=== PATIENT | female | born 1975 | race Caucasian/White ===

== ENCOUNTER 2021-04-10 18:16 | Emergency (ER) | payer MEDICAID, SELFPAY ==
[2021-04-10 18:36] VITALS: BP 129/74; PULSE 76; RESP 17; TEMP 36.1; O2SAT 99; BMI 23.9
[2021-04-10 18:45] VITALS: BP 129/74; PULSE 76; RESP 17; O2SAT 99
--- NOTE | 2021-04-10 18:47 | ED_ITS ---
HPI - Extremity Problem General: Chief complaint: Extremity Injury, Upper Stated complaint: rt fingers are numb Time Seen by Provider: 04/10/21 18:47 History of Present Illness: HPI Narrative: 45-year-old female comes in today with complaints of numbness in the fingers of the right hand. Patient reports that sometimes the numbness causes some discomfort that radiates to her right inner elbow. Patient has normal range of motion. Patient denies any injury. Patient is a smoker. Patient denies any chronic medical problems or routine medications. Review of Systems General: Reports: 10 or more systems reviewed and unremarkable except in HPI and below Musc: Reports: other (Upper extremity pain and numbness) Physical Exam Const: COMMON NORMALS: no acute distress and patient oriented x3 GENERAL APPEARANCE: cooperative HENMT: COMMON NORMALS: normocephalic HEAD & SCALP: normal to inspection and normocephalic MOUTH: Normal oral and palatal mucosa present Eye: GENERAL EYE: appearance normal, both eyes and all related structures Neck/C-Spine: COMMON NORMALS: full ROM OTHER: Right trapezius muscle tension and tenderness Lymph: LYMPHATIC: no lymphadenopathy noted Chest: COMMONS NORMALS: normal inspection of the chest Resp: COMMON NORMALS: normal respiratory effort EFFORT & INSPECTION: Yes able to speak in complete sentences Cardio: COMMON NORMALS: regular rate and regular rhythm RATE: regular rate RHYTHM: regular rhythm GI: COMMON NORMALS: non-tender Back/Pelvis: COMMON NORMALS: thoracic and lumbar spine normal to inspection Extremity: COMMON NORMALS: normal to inspection NARRATIVE EXTREMITY EXAM: Tenderness of the medial epicondyle, equal bilateral strength, normal range of motion, no significant abnormality between extremities. Pulses are intact. Neuro: COMMON NORMALS: patient oriented x3 and moves all extremities Psych: COMMON NORMALS: mental status grossly normal and cooperative Skin: COMMON NORMALS: no rashes or lesions noted GENERAL SKIN EXAM: no rashes or lesions noted Course Vital Signs: Vital signs: Vital Signs Temperature 97 F L 04/10/21 18:36 Pulse Rate 76 04/10/21 18:45 Respiratory Rate 17 04/10/21 18:45 Blood Pressure 129/74 04/10/21 18:45 Pulse Oximetry 99 04/10/21 18:45 MDM - Extremity (Nontraumatic) MDM Narrative: Medical decision making narrative: 45-year-old female comes in today for concerns of numbness and pain to the right hand. Patient does report that she has had difficulties for a while but had to call out of work today due to the extreme discomfort. On exam patient has normal range of motion of extremity. Some mild clubbing of bilateral fingers. Pulses and sensation are normal distally. Tenderness is noted in the right trapezius muscle of the neck and shoulder area. Tenderness is noted in the right medial epicondyles. Differential diagnoses include cervical radiculopathy, medial epicondylitis, peripheral neuropathy, Buerger's disease, Raynaud's phenomena. No signs of a serious illness or injury is noted. Patient needs to have further evaluation with primary care and possible neurology evaluation and testing. At this time we will start patient on some prednisone 60 mg today with 40 mg daily for 5 more days. Patient was recommended to use acetaminophen and ibuprofen and maintain activity as tolerated. Patient reported understanding of care plan and need for follow-up or return to the ER for worsening symptoms or new concerns. At this time due to the tenderness in the medial epicondyles believe the patient may have some epicondylitis and we will treat with a steroid to help reduce inflammation and hopefully improve sensation in the extremity. Discharge Plan Discharge Patient Disposition: Home Clinical Impression: Neuropathy Condition: Stable Prescriptions: New prednisone 20 mg tablet 20 mg PO BID 5 Days Qty: 10 RF: 0 Discharge Orders: Discharge ED (Routine); Ordered 04/10/21 Ordered By: Oniel Martin Referrals: Jus Corrales DO [Family Provider] - Discharge Diet: Usual diet Discharge Activity: Increase activity as tolerated Patient Instructions: Peripheral Neuropathy (ED), Opioid Safety Activity Restrictions/Additional Instructions: Activity as tolerated. Drink plenty of water with medication. Use acetaminophen and ibuprofen for pain. Follow-up with primary care in 3 to 5 days for recheck. You are going to probably have to have some further evaluation with neurology or other providers to locate where the nerve is being impinged. Return to the emergency department as needed for new concerns. Stand Alone Forms: Work/School Release Coding Level of Care Code ED Powertrain Engineer for Bettina Hamilton
[2021-04-10] MEDS: predniSONE 20 mg Tablet 60 MG PO (19:05)
== END 2021-04-10 19:09 | disposition home or self-care (01) ==
PROVIDERS: Emergency Provider Nurse Practitioner Family
DX: G62.9 Polyneuropathy, unspecified (principal)
CPT/HCPCS: 99283; J7512

== ENCOUNTER 2022-11-30 08:50 | Outpatient (CLI) | payer MEDICAID, SELFPAY ==
[2022-12-01 12:35] LABS: CENTROMERE B ANTIBODY <1.0 NEG AI (<1.0 NEG); JO-1 ANTIBODY <1.0 NEG AI (<1.0 NEG); RNP ANTIBODY <1.0 NEG AI (<1.0 NEG); SCL-70 ANTIBODY <1.0 NEG AI (<1.0 NEG); SJOGREN'S ANTIBODY (SS-A) >8.0 POS AI (<1.0 NEG); SM ANTIBODY <1.0 NEG AI (<1.0 NEG); SS-B 1.1 POS AI (<1.0 NEG)
[2022-12-01 15:35] LABS: COMPLEMENT COMPONENT C3C 123 mg/dL (83-193); COMPLEMENT COMPONENT C4C 26 mg/dL (15-57)
[2022-12-02 08:35] LABS: ANA PATTERN Nuclear, Speckled; ANA SCREEN, IFA POSITIVE (NEGATIVE)
[2022-12-02 13:09] LABS: COMPLEMENT, TOTAL (CH50) >60 U/mL (31-60)
[2022-12-02 13:49] LABS: THYROID PEROXIDASE ANTIBODIES 1 IU/mL (<9)
[2022-12-04 01:24] LABS: DNA AB (DS) CRITHIDIA,IFA NEGATIVE (NEGATIVE)
== END 2022-11-30 08:51 | disposition home or self-care (01) ==
LOC: LAB 08:53
PROVIDERS: PCP Nurse Practitioner Family; Visit Provider Nurse Practitioner Family
DX: L81.4 Other melanin hyperpigmentation (principal); D22.5 Melanocytic nevi of trunk; M25.50 Pain in unspecified joint; K11.7 Disturbances of salivary secretion; R53.83 Other fatigue; L56.4 Polymorphous light eruption; L72.0 Epidermal cyst; Z71.89 Other specified counseling
CPT/HCPCS: 36415; 86160; 86162; 86235; 86255; 86376

== ENCOUNTER → 2023-01-04 12:05 | Outpatient (BNVA) | payer MEDICAID, SELFPAY | PROVIDERS: PCP Nurse Practitioner Family; Referring Provider Nurse Practitioner Family; Visit Provider Internal Medicine Rheumatology | DX: Z79.899 Other long term (current) drug therapy (principal); M19.90 Unspecified osteoarthritis, unspecified site; Z11.1 Encounter for screening for respiratory tuberculosis; Z11.59 Encounter for screening for other viral diseases | CPT/HCPCS: 36415; 72040; 72072; 80076; 82565; 85025; 86200; 86431; 86480; 86704; 86803; 87340 ==

== ENCOUNTER → 2023-07-11 10:18 | Outpatient (BNVA) | payer MEDICAID, SELFPAY | PROVIDERS: PCP Nurse Practitioner Family; Visit Provider Internal Medicine Rheumatology | DX: Z79.899 Other long term (current) drug therapy (principal); M19.90 Unspecified osteoarthritis, unspecified site | CPT/HCPCS: 36415; 73130; 73630; 80076; 82306; 82565; 84439; 84443; 85025; 86140 ==

== ENCOUNTER → 2023-08-16 09:58 | Outpatient (BNVA) | payer MEDICAID, SELFPAY | PROVIDERS: PCP Nurse Practitioner Family; Referring Provider Nurse Practitioner Family; Visit Provider Specialist | DX: G31.84 Mild cognitive impairment of uncertain or unknown etiology (principal); G43.711 Chronic migraine without aura, intractable, with status migrainosus; G47.19 Other hypersomnia | CPT/HCPCS: 36415; 80076; 82525; 82565; 82607; 85025; 85651; 86140 ==

== ENCOUNTER 2023-08-30 16:24 | Outpatient (CLI) | payer MEDICAID, SELFPAY ==
--- NOTE | 2023-08-30 16:45 | MR_ITS ---
WS: [id number] MRI HEAD WITHOUT CONTRAST TECHNIQUE: Sagittal T1, T2 axial, T2 axial FLAIR, axial and coronal T1 images, axial susceptibility w eighted imaging, axial diffusion weighted images, and coronal T2 images were obtained. CLINICAL INFORMATION: G31.84 - Mild cognitive impairment of uncertain or unknow... COMPARISON: None. FINDINGS: No evidence of restricted diffusion to suggest acute ischemia. Ventricular system and basal cisterns are patent. A few small foci of T2 hyperintensity in the subcortical and periventricular white matter are nonspecific in a patient this age but can be seen with migraine headaches. Normal posterior vandana a. Normal vascular flow voids at the skull base. No extra-axial fluid collections. No evidence of mas s or mass effect. Small retention cyst in the RIGHT maxillary sinus. Normal posterior nasopharynx. Ma stoid air cells are well aerated. Normal optic chiasm and pituitary infundibulum. Temporal lobes and hippocampal formations are normal in appearance. No hemosiderin on the susceptibly weighted images. IMPRESSION: 1. No evidence of restricted diffusion to suggest acute ischemia. 2. A few tiny punctate foci of T2 hyperintensity in the periventricular and subcortical white matter nonspecific in a patient of this age but can be seen with migraine headaches. 3. Temporal lobes and hippocampal formations are normal in appearance. 4. Retention cyst RIGHT maxillary sinus measuring 1.5 cm
== END 2023-08-30 16:25 | disposition home or self-care (01) ==
LOC: RAD 16:24
PROVIDERS: PCP Nurse Practitioner Family; Visit Provider Specialist
DX: G31.84 Mild cognitive impairment of uncertain or unknown etiology (principal); G43.711 Chronic migraine without aura, intractable, with status migrainosus; G47.19 Other hypersomnia
CPT/HCPCS: 70551

== ENCOUNTER 2023-11-09 16:46 | Emergency (ER) | payer MEDICAID, SELFPAY ==
[2023-11-09 17:41] VITALS: BP 137/85; PULSE 61; RESP 16; TEMP 36.9; O2SAT 100; BMI 30.6
--- NOTE | 2023-11-09 18:14 | CTR_ITS ---
PROCEDURE INFORMATION: Exam: CT Lumbar Spine Without Contrast Exam date and time: 11/09/2023 6:33 PM Age: 48 years old Clinical indication: Low back pain; Patient HX: Pain near l5 TECHNIQUE: Imaging protocol: Computed tomography of the lumbar spine without contrast. Radiation optimization: All CT scans at this facility use at least one of these dose optimization techniques: automated exposure control; mA and/or kV adjustment per patient size (includes targeted exams where dose is matched to clinical indication); or iterative reconstruction. COMPARISON: CT thoracic spin wo con* [id number] 11/09/2023 6:33 PM RADIATION DOSE METRICS: Total DLP (mGy-cm): 797 FINDINGS: Bones/joints: No acute fracture. Normal alignment. No significant disc bulge or herniation. No severe spinal canal stenosis. No significant neural foraminal narrowing. Soft tissues: Unremarkable. CT/CT lumbar spine wo con* [id number] IMPRESSION: No acute findings.
--- NOTE | 2023-11-09 18:14 | CTR_ITS ---
PROCEDURE INFORMATION: Exam: CT Thoracic Spine Without Contrast Exam date and time: 11/09/2023 6:33 PM Age: 48 years old Clinical indication: Injury or trauma; Blunt trauma (contusions or hematomas); Patient HX: PT here via pov sent by pcp for CT scan. PT reports a fall Monday of last week. PT states the xrays showed compression FX of back. PT reports a HX of degenerative disc disease and osteoprosis. PT reports left rib, back, shoulder, and right knee pain. ; Additional info: Traumatic upper back pain TECHNIQUE: Imaging protocol: Computed tomography of the thoracic spine without contrast. Radiation optimization: All CT scans at this facility use at least one of these dose optimization techniques: automated exposure control; mA and/or kV adjustment per patient size (includes targeted exams where dose is matched to clinical indication); or iterative reconstruction. COMPARISON: CR XR thoracic spine 3V* [id number] 01/04/2023 12:16 PM RADIATION DOSE METRICS: Total DLP (mGy-cm): 710 FINDINGS: Bones/joints: No acute fracture. Normal alignment. No significant disc bulge or herniation. No severe spinal canal stenosis. No significant neural foraminal narrowing. Small Schmorl's nodes at superior endplates of T11 and T9. Soft tissues: Unremarkable. CT/CT thoracic spin wo con* [id number] IMPRESSION: Unremarkable CT Spine.
--- NOTE | 2023-11-09 18:14 | W.ED.GENADLT ---
HPI - General Adult General: Chief complaint: General Medical Stated complaint: Dr. Kong sent overToro garland on back Time Seen by Provider: 11/09/23 17:24 History of Present Illness: 48-year-old female who presents to the emergency room from her primary care's office. She had a fall about a week ago and has been having diffuse back pain. Primarily mid back but basically her whole back. She had x-rays done and they were concerned she might have a compression fracture so she says she was told to come to the emergency room for CT scans. No saddle numbness, no urinary retention or incontinence, no focal motor deficit, no sensory deficit. no recent fever. no cough. no shortness of breath. no chest pain. no abdominal pain. no nausea or vomiting. no dysuria. no altered mental status. no edema. Review of Systems Narrative: Constitutional symptoms: Negative except as documented in HPI. Skin symptoms: Negative except as documented in HPI. Eye symptoms: Negative except as documented in HPI. ENMT symptoms: Negative except as documented in HPI. Respiratory symptoms: Negative except as documented in HPI. Cardiovascular symptoms: Negative except as documented in HPI. Gastrointestinal symptoms: Negative except as documented in HPI. Genitourinary symptoms: Negative except as documented in HPI. Musculoskeletal symptoms: Negative except as documented in HPI. Neurologic symptoms: Negative except as documented in HPI. Psychiatric symptoms: Negative except as documented in HPI. Endocrine symptoms: Negative except as documented in HPI. [facility] ED PFSH: Medical History (Updated 11/09/23 @ 20:52 by Renetta Miller MD) Psychiatric care Seropositive rheumatoid arthritis of multiple sites Immunization counseling High risk medication use Inflammatory arthritis Positive TOMEKA (antinuclear antibody) Primary Sjogren's syndrome Cervical ca Ovarian cancer Fever blister Joint pain GERD (gastroesophageal reflux disease) Surgical History History of hysterectomy with bilateral oophorectomy History of delivery H/O myomectomy History of tonsillectomy Family History Other Cancer Diabetes Hypertension Lung disease Rheumatoid arthritis Denies family history of Lupus Stroke Social History (Updated 08/16/23 @ 08:24 by Ade Lutz LPN) Smoking and tobacco/nicotine status: current every day tobacco/nicotine user Alcohol intake: current Alcohol intake frequency: holidays/special occasions only Physical Exam Narrative: EXAM NARRATIVE: General: Alert, no acute distress. Head: Normocephalic Neck: Trachea midline Eye: Extraocular movements are intact. Ears, nose, mouth and throat: Oral mucosa moist Respiratory: Respirations are non-labored Musculoskeletal: Normal ROM Back: no step off, no focal tenderness, some paraspinal muscle tenderness Neurological: Alert and oriented to person, place, time, and situation, No focal neurological deficit observed. Psychiatric: Cooperative, appropriate mood & affect. Course Vital Signs: Vital signs: Vital Signs Temperature 98.5 F 11/09/23 17:41 Pulse Rate 56 L 11/09/23 19:34 Respiratory Rate 16 11/09/23 17:41 Blood Pressure 189/97 11/09/23 19:34 Pulse Oximetry 99 11/09/23 19:34 Oxygen Delivery Me thod Room Air 11/09/23 18:20 MDM - General Adult Medical Decision Making Medical decision making: Differential diagnosis including but not limited to and based on the above HPI, review of systems and physical exam: CT scans of the thoracic and low back were ordered per patient request CT of the lumbar spine: No fracture. Good alignment. No step-offs. This was reviewed and interpreted by myself the emergency room physician. CT of the thoracic spine: No fracture. Good alignment. No step-offs. This was reviewed and interpreted by myself the emergency room physician. Reexamination: Patient remained stable. No increased work of breathing. No focal motor deficits. No saddle numbness. Assessment and plan: Back strain -Toradol, Flexeril and Decadron in the emergency - Discharged home - Discussed plan with patient. Answered any questions. - Evaluation and treatment of this problem were appropriate in the emergency setting. Lab Data Radiology Impressions Lumbar Spine CT 11/09/23 18:14 IMPRESSION: No acute findings. Thoracic Spine CT 11/09/23 18:14 IMPRESSION: Unremarkable CT Spine. All radiology interpretation(s) finalized by discharge Discharge Plan Discharge Patient Disposition: Home Clinical Impression: Back strain Qualifiers: Encounter type: subsequent encounter Qualified Code(s): S39.012D - Strain of muscle, fascia and tendon of lower back, subsequent encounter Condition: Stable Prescriptions: New cyclobenzaprine 10 mg tablet 10 mg PO Q8H Qty: 20 0RF dexamethasone 6 mg tablet 6 mg PO DAILY 5 Days Qty: 5 0RF diclofenac sodium 50 mg tablet,delayed release (DR/EC) 50 mg PO Q12H Qty: 20 0RF No Action sucralfate [Carafate] 1 gram tablet 1 g PO QID omeprazole 40 mg capsule,delayed release(DR/EC) 40 mg PO TID acyclovir 400 mg tablet 400 mg PO DAILY ibuprofen PO aspirin PO famotidine 20 mg tablet 20 mg PO BID lisinopril-hydrochlorothiazide 10-12.5 mg tablet 1 tab PO DAILY cevimeline 30 mg capsule 1 cap PO TID metoclopramide HCl 10 mg tablet 5 mg PO Q6H PRN amlodipine [Norvasc] 5 mg tablet 5 mg PO DAILY Qty: 30 3RF methotrexate sodium 25 mg/mL solution 20 mg SUBCUT .Q7days Qty: 10 1RF folic acid 1 mg tablet 1 mg PO DAILY Qty: 30 3RF (DME) insulin syringes (disposable) 1 mL syringe See Rx Instructions .ROUTE .MEDSUPPLY Qty: 25 1RF Rx Instructions: As directed amitriptyline 25 mg tablet 25 mg PO DAILY Qty: 30 3RF Rx Instructions: Take at bedtime Discharge Orders: Discharge ED (Routine); Ordered 11/09/23 Ordered By: Renetta Miller Referrals: Sidney Orta DO [Primary Care Provider] - 1-3 days Discharge Diet: Usual diet Discharge Activity: Increase activity as tolerated Patient Instructions: Low Back Strain (ED), Lower Back Exercises (ED) Activity Restrictions/Additional Instructions: Thank you for choosing [facility] for your healthcare needs today. Please realize this is an emergency room and that we are providing you with a medical screening exam and this may not be complete and all inclusive of all the testing and or work up that you may need to determine your ailment or severity of your illness. You have been screened and evaluated and felt safe for discharge. Health conditions do change or evolve sometimes and as such it is important that you follow up with your Primary Doctor to be re checked, 3-5 days is a general good time frame for follow up. You are always welcome to return to the ED for re assessment if your symptoms are worsening or you have new concerns Coding Level of Care Code ED Emr Analyst for Bettina Hamilton
[2023-11-09 18:20] VITALS: BP 140/92; PULSE 65; O2SAT 98
[2023-11-09] MEDS: HYDROcodone-acetaminophen 10-325 mg Tablet 1 TAB PO (18:43)
--- NOTE | 2023-11-09 18:50 | PC.NURSE ---
Assumed care from Estelle ERICKSON at this time.
[2023-11-09 18:57] VITALS: PULSE 54; O2SAT 99
[2023-11-09 19:14] VITALS: BP 133/81; PULSE 57; O2SAT 100
[2023-11-09 19:34] VITALS: BP 189/97; PULSE 56; O2SAT 99
[2023-11-09] MEDS: ketorolac 30 mg/mL INJ IVP (21:01)
[2023-11-09] MEDS: cyclobenzaprine 10 mg Tablet PO (21:02)
[2023-11-09 21:29] VITALS: PULSE 50; RESP 18; O2SAT 98
== END 2023-11-09 21:26 | disposition home or self-care (01) ==
PROVIDERS: Emergency Provider Emergency Medicine; PCP Family Medicine
DX: S39.012A Strain of muscle, fascia and tendon of lower back, initial encounter (principal); Z79.4 Long term (current) use of insulin; Z72.0 Tobacco use; Z85.43 Personal history of malignant neoplasm of ovary; Z85.41 Personal history of malignant neoplasm of cervix uteri; W19.XXXA Unspecified fall, initial encounter
CPT/HCPCS: 72128; 72131; 96374; 96375; 99285; J1885

== ENCOUNTER 2024-01-23 08:12 | Outpatient (CLI) | payer MEDICAID, SELFPAY ==
--- NOTE | 2024-01-23 08:15 | FL_ITS ---
WS: [id number] Examination: FL barium swallow [id number] Reason for Exam: DYSPHAGIA history of reflux, history of hiatal hernia repair x2 Date: 01/23/2024 Comparison: None. Findings: 9 video runs were performed. The dap was 162 dg/sq cm. Fluoroscopy time was 82 seconds. I hiatal hernia is identified with previous surgical changes consistent with a fundoplication. Barium passed freely through the esophagus to the stomach. There was no stricture or diverticulum. Mild esophagitis is suspected. FL/FL barium swallow [id number] Impression: There is no esophageal obstruction or stricture. Esophagitis is suspected There is a hiatal hernia with findings consistent with the history of previous fundoplication.
== END 2024-01-23 08:13 | disposition home or self-care (01) ==
LOC: RAD 08:12
PROVIDERS: PCP Family Medicine; Visit Provider Nurse Practitioner Family
DX: R13.10 Dysphagia, unspecified (principal); K21.9 Gastro-esophageal reflux disease without esophagitis; K44.9 Diaphragmatic hernia without obstruction or gangrene
CPT/HCPCS: 74220

== ENCOUNTER 2024-01-23 09:19 | Outpatient (CLI) | payer MEDICAID, SELFPAY ==
[2024-01-23 09:42] LABS: Basophils % 0.6 %; Eosinophils # 0.1 10^3/uL (0.0-0.8); Eosinophils % 2.7 %; Hematocrit 38.7 % (36-47); Lymphocytes # 1.8 10^3/uL (0.8-4.8); Lymphocytes % 36.9 %; Mean Corpuscular HGB Conc 33.3 g/dL (30-55); Mean Corpuscular Hemoglobin 30.6 pg (27-33); Mean Corpuscular Volume 91.7 fl (85-98); Mean Platelet Volume 10.6 fL (7.4-10.4); Monocytes # 0.4 10^3/uL (0.2-0.9); Monocytes % 8.4 %; Neutrophils # 2.51 10^3/uL (1.8-7.7); Neutrophils % 51.2 %; Nucleated Red Blood Cells % 0 %; Platelet Count 207 10^3/cmm (157-399); Red Blood Count 4.22 10^6/uL (3.85-5.65)
[2024-01-23 09:50] LABS: Erythrocyte Sedimentation Rate 4 mm/hr (0-15)
[2024-01-23 10:07] LABS: Alanine Aminotransferase 18 U/L (0-33); Albumin Level 4.5 g/dL (3.5-5.2); Alkaline Phosphatase 91 U/L (35-105); Aspartate Amino Transferase 20 U/L (0-32); Calcium 9.6 mg/dL (8.5-10.5); Globulin 3.3 g/dL (1.3-4.6); Glomerular Filtration Rate 67.4 mL/min (90-130); Magnesium 2.2 mg/dL (1.7-2.3); Phosphorus 3.4 mg/dL (2.5-4.5); Total Bilirubin 0.5 mg/dL (0.15-1.2); Total Protein 7.8 g/dL (6.6-8.7)
== END 2024-01-23 09:20 | disposition home or self-care (01) ==
LOC: LAB 09:21
PROVIDERS: PCP Family Medicine; Visit Provider Internal Medicine Rheumatology
DX: M05.79 Rheumatoid arthritis with rheumatoid factor of multiple sites without organ or systems involvement (principal); Z79.899 Other long term (current) drug therapy
CPT/HCPCS: 36415; 80076; 82310; 82565; 83735; 84100; 84132; 85025; 85651; 86140

== ENCOUNTER 2024-02-27 10:43 | Outpatient (CLI) | payer MEDICAID, SELFPAY ==
[2024-02-27 11:03] LABS: Basophils % 0.8 %; Eosinophils # 0.1 10^3/uL (0.0-0.8); Eosinophils % 1.3 %; Hematocrit 40.6 % (36-47); Lymphocytes # 1.4 10^3/uL (0.8-4.8); Lymphocytes % 37.3 %; Mean Corpuscular HGB Conc 32.3 g/dL (30-55); Mean Corpuscular Hemoglobin 30.1 pg (27-33); Mean Corpuscular Volume 93.3 fl (85-98); Mean Platelet Volume 10.2 fL (7.4-10.4); Monocytes # 0.3 10^3/uL (0.2-0.9); Monocytes % 8.1 %; Neutrophils % 52.2 %; Nucleated Red Blood Cells % 0 %; Platelet Count 186 10^3/cmm (157-399); Red Blood Count 4.35 10^6/uL (3.85-5.65); Red Cell Distribution Width 13.5 % (12.1-15.1); White Blood Count 3.83 10^3/uL (3.29-11.43)
[2024-02-27 11:07] LABS: Erythrocyte Sedimentation Rate 6 mm/hr (0-15)
[2024-02-27 11:27] LABS: Alanine Aminotransferase 33 U/L (0-33); Albumin Level 4.2 g/dL (3.5-5.2); Alkaline Phosphatase 87 U/L (35-105); Aspartate Amino Transferase 23 U/L (0-32); Globulin 3.4 g/dL (1.3-4.6); Glomerular Filtration Rate 77.2 mL/min (90-130); Total Bilirubin 0.5 mg/dL (0.15-1.2); Total Protein 7.6 g/dL (6.6-8.7)
== END 2024-02-27 10:44 | disposition home or self-care (01) ==
LOC: LAB 10:44
PROVIDERS: PCP Family Medicine; Visit Provider Internal Medicine Rheumatology
DX: Z79.899 Other long term (current) drug therapy (principal); M05.79 Rheumatoid arthritis with rheumatoid factor of multiple sites without organ or systems involvement
CPT/HCPCS: 36415; 80076; 82565; 85025; 85651; 86140

== ENCOUNTER 2024-03-15 13:40 | Outpatient (CLI) | payer MEDICAID, SELFPAY | END 2024-03-15 13:41 | disposition home or self-care (01) | LOC: LAB 13:42 | PROVIDERS: PCP Family Medicine; Visit Provider Surgery | DX: K44.9 Diaphragmatic hernia without obstruction or gangrene (principal); K21.9 Gastro-esophageal reflux disease without esophagitis | CPT/HCPCS: 36415; 80323 ==

== ENCOUNTER 2024-04-22 06:00 | Outpatient (RCR) | payer MEDICAID, SELFPAY | END 2024-05-21 23:59 | disposition home or self-care (01) | LOC: MPT 06:00 | PROVIDERS: PCP Family Medicine; Visit Provider Internal Medicine Rheumatology | DX: M54.50 Low back pain, unspecified (principal); G89.29 Other chronic pain | CPT/HCPCS: 97110; 97140; 97162; G0283 ==

== ENCOUNTER 2024-04-26 13:57 | Outpatient (CLI) | payer MEDICAID, SELFPAY ==
--- NOTE | 2024-04-26 14:30 | XR_ITS ---
WS: [id number] DEXA (DUAL ENERGY X-RAY ABSORPTIOMETRY) Bone mineral density was performed using a [employer] machine. HISTORY: M81.0 - Age-related osteoporosis without current patholog... COMPARISON: None available. Lumbar spine BMD (L1-L4): 0.870 g/cm2 T score: -2.6 Z score: -2.4 Total hip BMD: Left: 0.809 g/cm2. T score: -1.6 Z score: -1.2 Right: 0.862 g/cm2. T score: -1.2 Z score: -0.8 10 year probability of a major osteoporotic fracture is 5.1%. XR/XR DEXA axial skeleton* [id number] IMPRESSION: OSTEOPOROSIS based upon the WHO classification for females.
== END 2024-04-26 13:58 | disposition home or self-care (01) ==
LOC: RAD 13:58
PROVIDERS: PCP Family Medicine; Visit Provider Internal Medicine Rheumatology
DX: Z13.820 Encounter for screening for osteoporosis (principal); M81.0 Age-related osteoporosis without current pathological fracture
CPT/HCPCS: 77080

== ENCOUNTER 2024-05-22 06:30 | Outpatient (RCR) | payer MEDICAID, SELFPAY | END 2024-06-21 23:59 | disposition home or self-care (01) | LOC: MPT 06:30 | PROVIDERS: PCP Family Medicine; Visit Provider Internal Medicine Rheumatology | DX: M54.50 Low back pain, unspecified (principal); G89.29 Other chronic pain | CPT/HCPCS: 97110; G0283 ==

== ENCOUNTER 2024-07-31 08:07 | Outpatient (CLI) | payer MEDICAID, SELFPAY | END 2024-07-31 08:08 | disposition home or self-care (01) | LOC: RT 08:08 | PROVIDERS: PCP Family Medicine; Visit Provider Family Medicine | DX: R06.00 Dyspnea, unspecified (principal) | CPT/HCPCS: 94010 ==

== ENCOUNTER 2024-07-31 09:21 | Outpatient (CLI) | payer MEDICAID, SELFPAY ==
--- NOTE | 2024-07-31 09:27 | FL_ITS ---
WS: [id number] Barium swallow and esophagram, 07/31/2024 Clinical Data: HIATAL HERNIA W/GERD Comparison: Barium swallow and esophagram, 01/23/2024 Fluoroscopy time: 1min [id number] # of spot films: 48 Findings: The patient swallowed the thick and thin barium, and it flowed through the hypopharynx without hesitation. No stricture, mass, polyp or erosion was seen. There is no aspiration or penetration. The barium entered the esophagus and there was normal motility throughout. No hiatal hernia, reflux, stricture, polyp, mass, erosion or ulcer was noted. Lauri fundoplication was no longer present. The barium passed normally into the stomach.. FL/FL barium swallow [id number] Impression: 1. Negative esophagram. 2. Lauri fundoplication no longer visible.
== END 2024-07-31 09:22 | disposition home or self-care (01) ==
PROVIDERS: PCP Family Medicine; Visit Provider Surgery
DX: K44.9 Diaphragmatic hernia without obstruction or gangrene (principal); K21.9 Gastro-esophageal reflux disease without esophagitis
CPT/HCPCS: 74220

== ENCOUNTER → 2024-08-06 11:40 | Outpatient (BNVA) | payer MEDICAID, SELFPAY | PROVIDERS: PCP Family Medicine; Visit Provider Internal Medicine Rheumatology | DX: Z79.899 Other long term (current) drug therapy (principal) | CPT/HCPCS: 36415; 80076; 82306; 82310; 82565; 85025; 85651; 86140 ==

== ENCOUNTER → 2024-08-08 15:34 | Outpatient (BNVA) | payer MEDICAID, SELFPAY | PROVIDERS: PCP Family Medicine; Visit Provider Orthopaedic Surgery | DX: M54.50 Low back pain, unspecified (principal) | CPT/HCPCS: 72110 ==

== ENCOUNTER 2024-09-17 13:55 | Oncology outpatient (recurring) (ONCR) | payer MEDICAID, SELFPAY ==
[2024-09-17] MEDS: denosumab 60 mg SDV SUBCUT (14:43)
[2024-09-17 15:00] VITALS: BP 146/75; PULSE 67; RESP 16; TEMP 36.4; O2SAT 95
== END 2024-09-18 23:59 | disposition home or self-care (01) ==
PROVIDERS: PCP Family Medicine; Visit Provider Internal Medicine Rheumatology
DX: M81.0 Age-related osteoporosis without current pathological fracture (principal); Z79.899 Other long term (current) drug therapy
CPT/HCPCS: 96372; J0897

== ENCOUNTER 2024-10-24 09:11 | Outpatient (CLI) | payer MEDICAID, SELFPAY | END 2024-10-24 09:12 | disposition home or self-care (01) | LOC: LAB 09:12 | PROVIDERS: PCP Family Medicine; Visit Provider Internal Medicine Rheumatology | DX: Z79.899 Other long term (current) drug therapy (principal) | CPT/HCPCS: 36415; 80076; 82565; 85025; 85651; 86140 ==

== ENCOUNTER 2024-11-26 10:45 | Outpatient (CLI) | payer MEDICAID, SELFPAY ==
--- NOTE | 2024-11-26 11:00 | MR_ITS ---
WS: [id number] MRI LUMBAR SPINE NONCONTRAST TECHNIQUE: Sagittal T1, T2 and STIR imaging. Axial T1 and T2 imaging. CLINICAL INFORMATION: chronic back pain COMPARISON: CT 2023 FINDINGS: Mild lumbar curve. Slight exaggeration of the normal lumbar lordosis. No high- grade central canal stenosis. Disc bulging worse at L5-S1. L1-L2: Mild annular bulging. Mild facet arthropathy. L2-L3: Mild annular bulging. Mild facet arthropathy. L3-L4: No significant disc bulging. Mild facet arthropathy. Spinal canal and foramen are patent. L4-L5: Mild annular bulging. Slight narrowing of the RIGHT subarticular recess. Moderate facet arthropathy. Spinal canal and foramen are patent. L5-S1: Mild annular bulging. Slight impingement of traversing S1 nerve roots bilaterally. Moderate facet arthropathy. Mild LEFT foraminal narrowing. Visualized pelvic bony structures: Normal. Paravertebral soft tissues: Normal. MR/MR lumbar spine wo con* [id number] IMPRESSION: 1. Mild lumbar curve. No acute compression. 2. Annular bulging L5-S1 with slight impingement of traversing S1 nerve roots bilaterally. 3. Mild LEFT L5-S1 foraminal narrowing 4. Slight narrowing of the RIGHT L3-4 subarticular recess. 5. Mild to moderate facet arthropathy L3-L5.
[2024-11-26 15:08] LABS: Hematocrit 39.5 % (36-47); Hemoglobin 12.80 g/dL (11.27-16.99); Mean Corpuscular HGB Conc 32.4 g/dL (30-55); Mean Corpuscular Hemoglobin 29.7 pg (27-33); Mean Corpuscular Volume 91.6 fl (85-98); Nucleated Red Blood Cells % 0 %; Platelet Count 227 10^3/cmm (157-399); Red Blood Count 4.31 10^6/uL (3.85-5.65); White Blood Count 6.59 10^3/uL (3.29-11.43)
[2024-11-26 15:55] LABS: Alanine Aminotransferase 22 U/L (0-33); Albumin Level 4.1 g/dL (3.5-5.2); Alkaline Phosphatase 93 U/L (35-105); Aspartate Amino Transferase 21 U/L (0-32); Globulin 3.4 g/dL (1.3-4.6); Total Protein 7.5 g/dL (6.6-8.7)
== END 2024-11-26 10:46 | disposition home or self-care (01) ==
LOC: RAD 10:45
PROVIDERS: Internal Medicine Rheumatology; PCP Family Medicine; Visit Provider Orthopaedic Surgery
DX: M54.9 Dorsalgia, unspecified (principal); G89.29 Other chronic pain; Z79.899 Other long term (current) drug therapy; M51.26 Other intervertebral disc displacement, lumbar region; M99.63 Osseous and subluxation stenosis of intervertebral foramina of lumbar region; M46.96 Unspecified inflammatory spondylopathy, lumbar region; M48.07 Spinal stenosis, lumbosacral region
CPT/HCPCS: 36415; 72148; 80076; 82565; 85025; 85651; 86140; 86480

== ENCOUNTER 2025-03-17 13:29 | Oncology outpatient (recurring) (ONCR) | payer MEDICAID, SELFPAY ==
[2025-03-17] MEDS: denosumab 60 mg SDV (Infusion Clinic Only) SUBCUT (14:08)
== END 2025-03-21 23:59 | disposition home or self-care (01) ==
LOC: ONCMED 13:30
PROVIDERS: PCP Family Medicine; Visit Provider Internal Medicine Rheumatology
DX: M81.0 Age-related osteoporosis without current pathological fracture (principal); Z79.899 Other long term (current) drug therapy
CPT/HCPCS: 96372; J0897